=== PATIENT | male | born 1930 | race Caucasian/White ===

== ENCOUNTER 2020-09-13 12:33 | Emergency (ER) | payer MEDICARE, BC ==
[2020-09-13] MEDS ORDERED: Aspirin 81 MG Tab.Chew CHEW ONE (12:49)
[2020-09-13] MEDS ORDERED: Famotidine 20 MG/2 ML SDV IVPUSH ONE (12:49)
[2020-09-13] MEDS ORDERED: Metoprolol Tartrate 5 MG/5 ML SDV IVPUSH ONE (12:49)
[2020-09-13] MEDS ORDERED: Ticagrelor 90 MG Tab PO ONE (12:49)
--- NOTE | 2020-09-13 12:49 | EDM.PDOC ---
ED HPI GENERAL MEDICAL PROBLEM - General Chief Complaint: Chest Pain Stated Complaint: Chest Pain Time Seen by Provider: 09/13/20 12:40 Source of Information: Reports: Patient, Penitentiary Records, Old Records ([facility] EMR. No paper hospital chart available.) History Limitations: Reports: Altered Mental Status - History of Present Illness INITIAL COMMENTS - FREE TEXT/NARRATIVE: The patient was brought to the emergency room via transport vehicle from [facility] in [place] for further evaluation of initial 8/10 retrosternal chest pressure without radiation, however associated with some mild to moderate dyspnea and symptoms waking him up this morning. 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 His chest pain has improved to 5/10 at time of arrival to this facility with no apparent sublingual nitroglycerin tablets or other medications taken prior to arrival. He did take his morning coated baby aspirin and Plavix, however. The patient denies any heart flutter, dizziness, orthostasis, orthopnea, diaphoresis, paresthesias, recent decreased exercise tolerance, or any other anginal-type symptoms. No recent history of abdominal pain, heartburn, nausea, diarrhea, melena, gross hematochezia, or any food intolerance, including fatty foods, etc. with normal bowel movement earlier today. He denies any gross hematuria, colic, or the UTI symptoms. The patient also denies any recent fever, cough, wheezing, etc.. Onset: Today, Sudden Onset Date: 09/13/20 Onset Time: 06:00 Duration: Constant, Improving Location: Reports: Chest. Denies: Head, Face, Neck, Abdomen, Back, Upper Extremity, Left, Upper Extremity, Right, Radiates to Quality: Reports: Pressure, Same as Previous Episode Severity: Moderate Improves with: Reports: None Worsens with: Reports: None Context: Reports: Other (As above). Denies: Sick Contact, Trauma Associated Symptoms: Reports: Chest Pain, Shortness of Breath. 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) (As above), Other (see below) (As above) Middle Chest Pain Score (Numeric/FACES): 5 - Related Data Allergies Allergy/AdvReac Type Severity Reaction Status Date / Time No Known Allergies Allergy Verified 09/13/20 12:51 Home Meds: Home Meds Acetaminophen [Tylenol] 650 mg PO ,09/13/20 [History] Acetaminophen [Tylenol] 650 mg PO Q4HR PRN 09/13/20 [History] Aspirin [Children's Aspirin] 81 [place] 79909/13/20 [History] Clopidogrel Bisulfate [Plavix] [place] 79909/13/20 [History] Cyanocobalamin (Vitamin B-12) [Vitamin B-12] 1,000 [place] [address]09/13/20 [History] Furosemide [Lasix] 40 [place] 79909/13/20 [History] Ipratropium/Albuterol Sulfate [Iprat-Albut 0.5-3(2.5) mg/3 ml] 3 ml IH TID PRN 09/13/20 [History] Metoprolol Succinate [Toprol Xl] 25 [place] 79909/13/20 [History] NIFEdipine [Nifedipine ER] 60 mg [place] 79909/13/20 [History] Nitroglycerin 0.4 mg SL ASDIRECTED PRN 09/13/20 [History] Nitroglycerin 2.5 mg PO ,09/13/20 [History] Potassium Chloride [Klor-Con 10] 10 meq PO 09/13/20 [History] Sertraline [Zoloft] 50 [place] 79909/13/20 [History] atorvaSTATin [Lipitor] 40 mg PO BEDTIME 09/13/20 [History] lisinopriL [Lisinopril] 20 [place] [address]9909/13/20 [History] traZODone 50 mg PO BEDTIME 09/13/20 [History] Past Medical History HEENT History: Reports: Cataract, Hard of Hearing, Impaired Vision, Other (See Below). Denies: Allergic Rhinitis, Glaucoma, Macular Degeneration, Otitis Media, Retinal Detachment Other HEENT History: Patient wears glasses. 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 Left eye macular puckering. Cardiovascular History: Reports: Afib, Arrhythmia, CAD, Cardiomyopathy, Heart Failure, Heart Murmur, High Cholesterol, Hypertension, NV, Pacemaker, PTCA, Stents, Other (See Below). Denies: Aneurysm, Blood Clots/VTE/DVT, Bypass, PVD, Syncope Other Cardiovascular History: Patient with PTCA/stent in his 60s with apparent subsequent NV in about 2018?. Biologic valve replacement. Chronic atrial fibrillation/flutter with no current anticoagulation therapy. Additional previous history of sick sinus syndrome requiring a pacemaker. Respiratory History: Reports: Bronchitis, Recurrent, COPD, Intubation, Previous, Pneumonia, Recurrent. Denies: Asthma, Intubation, Difficult, PE, Pneumothorax, Sleep Apnea, TB Gastrointestinal History: Reports: GERD, Other (See Below). Denies: Celiac Disease, Cholelithiasis, Chronic Constipation, Chronic Diarrhea, Colon Polyp, Diverticulosis, Fecal Incontinence, GI Bleed, Hepatitis, Inflammatory Bowel Disease, Irritable Bowel Syndrome, Jaundice, Pancreatitis, PUD Other Gastrointestinal History: Umbilical hernia. Genitourinary History: Reports: BPH, Chronic Renal Insuffiency, Prostate Disorder, Other (See Below). Denies: Acute Renal Failure, Renal Calculus, STD, Urinary Incontinence, UTI, Recurrent Other Genitourinary History: Hypertensive grade 3 chronic renal insufficiency. Musculoskeletal History: Reports: Amputation, Arthritis, Back Pain, Chronic, Fracture, Gout, Neck Pain, Chronic, Osteoarthritis, Other (See Below). 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 Left hip fracture in about 1999. Neurological History: Reports: Neuropathy, Diabetic, Neuropathy, Peripheral. Denies: Alzheimers Disease, Cerebral Aneurysms, Concussion, CVA, Headaches, Chronic, Head Trauma, Migraines, MS, Parkinson's, Seizure, Speech Problems, TIA Psychiatric History: Reports: Anxiety, Depression, PTSD. Denies: Abuse, Victim of, ADD, ADHD, Addiction, Psych Hospitalization(s), Suicide Attempt, Suicidal Ideation Endocrine/Metabolic History: Reports: Diabetes, Type II, Hypokalemia, Obesity/BMI 30+, Other (See Below). Denies: Diabetes, Type I, Diabetes Mellitus, Type 3c, Hypothyroidism, IDDM Other Endocrine/Metabolic History: Borderline hyperglycemia. Hematologic History: Reports: Anemia, B12 Deficiency. Denies: Blood Transfusion(s), Iron Deficiency (Any blood transfusions) Immunologic History: Reports: None. Denies: AIDS, HIV, SLE Oncologic (Cancer) History: Reports: None. Denies: Basal Cell Carcinoma, Colon, Hodgkin's Lymphoma, Lymphoma, Malignant Melanoma, Non-Hodgkin's Lymphoma, Prostate, Squamous Cell Carcinoma Dermatologic History: Reports: Venous Stasis Dermatitis, Other (See Below). Denies: Eczema, Psoriasis Other Dermatologic History: Rhinophyma. - Infectious Disease History Infectious Disease History: Reports: Chicken Pox. Denies: C-Difficile, Measles, Meningitis, Mononucleosis, MRSA, Mumps, Novel Coronavirus, Pertussis (Whooping Cough), Rheumatic Fever, Rubella, Shingles, VRE - Past Surgical History Head Surgeries/Procedures: Reports: None HEENT Surgical History: Reports: Cataract Surgery, Oral Surgery, Other (See Below). Denies: Adenoidectomy, Eye Surgery, Myringotomy w Tube(s), Naso-Sinus Surgery, Tonsillectomy Other HEENT Surgeries/Procedures: Bilateral cataract surgery and his 60s. Complete teeth extraction with complete dentures uppers and lowers. Cardiovascular Surgical History: Reports: Coronary Artery Stent, Pacer, Percutaneous Transluminal Angioplasty. Denies: Coronary Artery Bypass, Varicose Other Cardiovascular Surgeries/Procedures: PTCA/stent in his 60s with last NV in about 2018. Pacemaker placement secondary to sick sinus syndrome. Respiratory Surgical History: Reports: None. Denies: Thoracentesis GI Surgical History: Reports: Appendectomy, Colonoscopy, Other (See Below). Denies: Cholecystectomy, EGD, Hernia, Abdominal, Hernia, Inguinal, Hernia Repair/Other, Polypectomy Other GI Surgeries/Procedures: Appendectomy in his 20s. Colonoscopy in his 70s? Male Surgical History: Reports: Circumcision, Vasectomy Endocrine Surgical History: Reports: None. Denies: Thyroid Biopsy Neurological Surgical History: Reports: None. Denies: C-Spine, Discectomy, Laminectomy, Lumbar Spine, Sacral Spine, Spinal Fusion, Thoracic Spine, Vertebroplasty Musculoskeletal Surgical History: Reports: Amputation, Joint Replacement, Knee Replacement, Other (See Below). Denies: Carpal Tunnel, Ganglion Cyst, Hip Replacement, ORIF Other Musculoskeletal Surgeries/Procedures:: Amputation repair of digit #4 of the left hand in the 1980s. Bilateral total knee arthroplasty in the with repeat bilateral procedures in about 2009. Oncologic Surgical History: Reports: None Dermatological Surgical History: Reports: None - Past Imaging History Past Imaging History: Reports: Other (See Below) (Pacemaker check on 09/05/2020) Social & Family History - Tobacco Use Tobacco Use Status *Q: Never Tobacco User Tobacco Use Within Last Twelve Months: No Used Tobacco, but Quit: No Smoking Cessation Information Provided To Patient: No Second Hand Smoke Exposure: No Second Hand Smoke Education Provided: No - Caffeine Use Caffeine Use: Reports: Coffee (5-10 cups/day). Denies: Energy Drinks, Soda, Tea - Alcohol Use Alcohol Use History: Yes Number of Drinks Per Day Comment: Apparent possible moderate previous alcohol intake without previous treatment, alcohol abuse, etc. by his history. Alcohol Use in Last Twelve Months: Yes Alcohol Use Frequency: Binges - Recreational Drug Use Recreational Drug Use: No Drug Use in Last 12 Months: No Recreational Drug Type: Denies: Amphetamines (Speed), Cocaine, Heroin, Inhalants (Glues, Solvents, Aerosols), LSD (Acid), Marijuana/Hashish, Methamphetamine, Morphine, Oxycodone - Living Situation & Occupation Living situation: Reports: (2014. 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 ED EXAM, GENERAL - Physical Exam Exam: See Below Exam Limited By: No Limitations General Appearance: Alert, WD/WN, No Apparent Distress Eye Exam: Bilateral Eye: EOMI, Normal Inspection (No vertigo or nystagmus. He does not have his glasses.) Ears: Normal External Exam, Normal Canal, Normal TMs, Hearing Loss (Moderate bilateral presbycusis with the patient not having his hearing aids today.) Nose: Normal Mucosa, No Blood, Other (Moderate rhinophyma) Throat/Mouth: Normal Lips, Normal Gums, Normal Oropharynx, Normal Voice, No Airway Compromise. No: Normal Teeth (Complete dentures uppers and lowers), Dysphagia, Perioral Cyanosis Head: Atraumatic, Normocephalic. No: Facial Swelling, Facial Tenderness, Sinus Tenderness Neck: Supple, Non-Tender, Full Range of Motion, Carotid Bruit (Mild bilateral carotid bruits). No: Lymphadenopathy (L), Lymphadenopathy (R), Thyromegaly Respiratory/Chest: No Respiratory Distress, No Accessory Muscle Use, Chest Non- Tender, Rales (Mild bilateral baseline). No: Rhonchi, Wheezing, Pleural Rub, Retractions Cardiovascular: Normal Peripheral Pulses, Regular Rate, Rhythm, No Edema, No Gallop, No JVD, No Murmur, No Rub. No: Gallop/S3, Gallop/S4, Friction Rub Peripheral Pulses: 2+: Radial (L), Radial (R), Dorsalis Pedis (L), Dorsalis Pedis (R) GI/Abdominal: Normal Bowel Sounds, Soft, Non-Tender, No Organomegaly, No Distention, No Abnormal Bruit, No Mass, Pelvis Stable, Hernia (2 cm nonincarcerated umbilical hernia), Other (Obese). No: Guarding (Male) Exam: Deferred Rectal (Males) Exam: Deferred Back Exam: Full Range of Motion, Other (Mild kyphosis). No: CVA Tenderness (L), CVA Tenderness (R), Muscle Spasm, Paraspinal Tenderness, Vertebral Tenderness Extremities: Normal Range of Motion, Non-Tender, No Pedal Edema, Normal Capillary Refill, Other (Mild to moderate venous stasis dermatitis of the anterior tibial regions bilaterally). No: Austin's Sign Neurological: Alert, Oriented, CN II-XII Intact, Normal Cognition (Although questionable borderline beginning confusion?/Organic brain syndrome), Normal Gait, Normal Reflexes (Negative Babinski's), No Motor/Sensory Deficits Psychiatric: Normal Affect, Normal Mood Skin Exam: Warm, Dry, Intact, Normal Color, Rash (Venous stasis dermatitis as above). No: Diaphoretic, Wound/Incision Lymphatic: No Adenopathy #1 Interpretation EKG Date: 09/13/20 Time: 12:33 Rhythm: A-Flutter (With likely 100% paced rhythm however pacer spikes difficult to assess secondary to atrial flutter) Rate (Beats/Min): 70 Comparison: NA - No Prior EKG EKG Interpretation Comments: Atrial flutter with paced rhythm Course - Vital Signs Last Recorded V/S: Last Vital Signs Temp 36.5 C 09/13/20 12:35 Pulse 70 09/13/20 14:55 Resp 17 09/13/20 12:50 BP 122/68 09/13/20 14:55 Pulse Ox 96 09/13/20 12:50 Vital Signs - 24 hr 09/13/20 09/13/20 09/13/20 12:35 12:50 13:05 Temperature [ 36.5 C Temporal] Pulse, 70 70 70 Peripheral [ Pulse Oximetry] Respiratory 16 17 Rate Blood Pressure Blood Pressure 134/73 121/67 123/68 [Right Upper Arm] O2 Sat by Pulse 97 96 Oximetry 09/13/20 09/13/20 09/13/20 13:34 13:40 14:08 Temperature [ Temporal] Pulse, 70 69 Peripheral [ Pulse Oximetry] Respiratory Rate Blood Pressure 121/66 Blood Pressure 83/51 L 99/66 [Right Upper Arm] O2 Sat by Pulse Oximetry 09/13/20 09/13/20 14:29 14:55 Temperature [ Temporal] Pulse, 70 70 Peripheral [ Pulse Oximetry] Respiratory Rate Blood Pressure Blood Pressure 114/66 122/68 [Right Upper Arm] O2 Sat by Pulse Oximetry - Orders/Labs/Meds Orders: Active Orders 24 hr Category Date Time Status Cardiac Monitoring [RC] . DIRECTED Care 09/13/20 12:49 Active EKG Documentation Completion [RC] ASDIRECTED Care 09/13/20 12:49 Active Oxygen Therapy, ED [RC] PRN Care 09/13/20 12:49 Active Peripheral IV Care [RC] . DIRECTED Care 09/13/20 12:49 Active Peripheral IV Care [RC] . DIRECTED Care 09/13/20 14:14 Active Pulse Oximetry [RC] CONTINUOUS Care 09/13/20 12:49 Active Up With Assistance [RC] PFP Care 09/13/20 12:49 Active Vital Signs [RC] PFP Care 09/13/20 12:49 Active Nothing per Oral Now Diet [DIET] Diet 09/13/20 Breakfast Active Chest 1V Frontal [CR] Stat Exams 09/13/20 12:49 Taken Nitroglycerin [Nitrostat] Med 09/13/20 13:26 Stat 0.4 mg SL ONETIME STA Sodium Chloride 0.9% [Saline Flush] Med 09/13/20 12:49 Active 10 ml FLUSH ASDIRECTED PRN Sodium Chloride 0.9% [Saline Flush] Med 09/13/20 14:13 Active 10 ml FLUSH ASDIRECTED PRN Obtain Past Medical Record [OM.PC] Urgent Oth 09/13/20 12:49 Active Peripheral IV Insertion Adult [OM.PC] Routine Oth 09/13/20 14:13 Ordered Peripheral IV Insertion Adult [OM.PC] Stat Oth 09/13/20 12:49 Ordered Resuscitation Status Stat Resus Stat 09/13/20 12:49 Ordered Medication Orders Nitroglycerin (Nitroglycerin 0.4 Mg Tab.Sl) 0.4 mg SL ONETIME STA Stop: 09/14/20 13:27 Last Admin: 09/13/20 13:34 Dose: 0.4 mg Documented by: GEREMIAS Sodium Chloride (Sodium Chloride 0.9% 10 Ml Syringe) 10 ml FLUSH ASDIRECTED PRN PRN Reason: Keep Vein Open Last Admin: 09/13/20 13:58 Dose: 10 ml Documented by: Admin: 09/13/20 13:02 Dose: 10 ml Documented by: GEREMIAS Sodium Chloride (Sodium Chloride 0.9% 10 Ml Syringe) 10 ml FLUSH ASDIRECTED PRN PRN Reason: Keep Vein Open Labs: Laboratory Tests 09/13/20 09/13/20 09/13/20 Range/Units 12:45 12:45 12:45 WBC 10.1 (4.0-10.2) K/uL RBC 5.71 H (4.33-5.41) M/uL Hgb 17.3 H (13.1-16.8) g/dL Hct 50.4 H (39.0-49.0) % MCV 88.3 D (84.0-98.0) fL MCH 30.3 (28.2-33.3) pg MCHC 34.3 (31.7-36.0) g/dL RDW 14.9 H (11.2-14.1) % Plt Count 241 D (150-350) K/uL Neut % (Auto) 71.4 (45.0-80.0) % Lymph % (Auto) 16.2 (10.0-50.0) % Humphreys % (Auto) 10.8 (2.0-14.0) % Eos % (Auto) 1.3 (0.0-5.0) % Baso % (Auto) 0.3 (0.0-2.0) % Neut # (Auto) 7.21 H (1.40-7.00) K/uL Lymph # (Auto) 1.64 (0.50-3.50) K/uL [place] # (Auto) 1.09 H (0.00-1.00) K/uL Eos # (Auto) 0.13 (0.00-0.50) K/uL Baso # (Auto) 0.03 (0.00-0.20) K/uL PT (9.5-12.0) SEC INR APTT (24.5-32.8) SEC D-Dimer, Quantitative 480 H (0-400) ng/mL Sodium 140 (136-145) mmol/L Potassium 4.1 (3.5-5.1) mmol/L Chloride 101 (98-107) mmol/L Carbon Dioxide 25.8 (21.0-32.0) mmol/L BUN 28 H (7-18) mg/dL Creatinine 1.23 H (0.51-1.17) mg/dL Est Cr Clr Drug Dosing 37.46 mL/min Estimated GFR (MDRD) 56 mL/min Glucose 122 H (70-99) mg/dL Lactic Acid (0.4-2.0) mmol/L Uric Acid 6.4 (2.6-7.2) mg/dL Calcium 9.2 (8.5-10.1) mg/dL Magnesium 2.0 (1.8-2.4) mg/dL Total Bilirubin 0.5 (0.2-1.0) mg/dL AST 11 L (15-37) U/L ALT 22 (12-78) U/L Alkaline Phosphatase 92 (46-116) IU/L Creatine Kinase 45 (26-308) U/L Creatine Kinase Index 3.6 H (0.0-2.5) % CK-MB (CK-2) 1.60 (0.00-3.60) ng/mL Troponin I 0.000 (0.000-0.056) ng/mL NT-Pro-B Natriuret Pep 7031 H (0-125) pg/mL Total Protein 7.6 (6.4-8.2) g/dL Albumin 4.3 (3.4-5.0) g/dL TSH, Ultra Sensitive 0.902 (0.358-3.740) mIU/mL SARS-CoV-2 RNA ([place]) (NEGATIVE) 09/13/20 09/13/20 09/13/20 Range/Units 12:45 13:10 13:10 WBC (4.0-10.2) K/uL RBC (4.33-5.41) M/uL Hgb (13.1-16.8) g/dL Hct (39.0-49.0) % MCV (84.0-98.0) fL MCH (28.2-33.3) pg MCHC (31.7-36.0) g/dL RDW (11.2-14.1) % Plt Count (150-350) K/uL Neut % (Auto) (45.0-80.0) % Lymph % (Auto) (10.0-50.0) % Humphreys % (Auto) (2.0-14.0) % Eos % (Auto) (0.0-5.0) % Baso % (Auto) (0.0-2.0) % Neut # (Auto) (1.40-7.00) K/uL Lymph # (Auto) (0.50-3.50) K/uL [place] # (Auto) (0.00-1.00) K/uL Eos # (Auto) (0.00-0.50) K/uL Baso # (Auto) (0.00-0.20) K/uL PT 10.3 (9.5-12.0) SEC INR 1.0 APTT 26.1 (24.5-32.8) SEC D-Dimer, Quantitative (0-400) ng/mL Sodium (136-145) mmol/L Potassium (3.5-5.1) mmol/L Chloride (98-107) mmol/L Carbon Dioxide (21.0-32.0) mmol/L BUN (7-18) mg/dL Creatinine (0.51-1.17) mg/dL Est Cr Clr Drug Dosing mL/min Estimated GFR (MDRD) mL/min Glucose (70-99) mg/dL Lactic Acid 1.4 (0.4-2.0) mmol/L Uric Acid (2.6-7.2) mg/dL Calcium (8.5-10.1) mg/dL Magnesium (1.8-2.4) mg/dL Total Bilirubin (0.2-1.0) mg/dL AST (15-37) U/L ALT (12-78) U/L Alkaline Phosphatase (46-116) IU/L Creatine Kinase (26-308) U/L Creatine Kinase Index (0.0-2.5) % CK-MB (CK-2) (0.00-3.60) ng/mL Troponin I (0.000-0.056) ng/mL NT-Pro-B Natriuret Pep (0-125) pg/mL Total Protein (6.4-8.2) g/dL Albumin (3.4-5.0) g/dL TSH, Ultra Sensitive (0.358-3.740) mIU/mL SARS-CoV-2 RNA ([place]) Negative (NEGATIVE) Meds: Medications Generic Name Dose Route Start Last Admin Trade Name Freq PRN Reason Stop Dose Admin Nitroglycerin 0.4 mg 09/13/20 13:26 09/13/20 13:34 Nitroglycerin 0.4 Mg Tab.Sl SL 09/14/20 13:27 0.4 mg ONETIME STA Administration Sodium Chloride 10 ml 09/13/20 12:49 09/13/20 13:58 Sodium Chloride 0.9% 10 Ml Syringe FLUSH 10 ml ASDIRECTED PRN Administration Keep Vein Open Sodium Chloride 10 ml 09/13/20 14:13 Sodium Chloride 0.9% 10 Ml Syringe FLUSH ASDIRECTED PRN Keep Vein Open Discontinued Medications Generic Name Dose Route Start Last Admin Trade Name Freq PRN Reason Stop Dose Admin Aspirin 324 mg 09/13/20 12:49 09/13/20 12:54 Aspirin 81 Mg Tab.Chew CHEW 09/13/20 12:50 324 mg ONETIME ONE Administration Famotidine 40 mg 09/13/20 12:49 09/13/20 13:00 Famotidine 20 Mg/2 Ml Sdv IVPUSH 09/13/20 12:50 40 mg ONETIME ONE Administration Furosemide 60 mg 09/13/20 13:41 09/13/20 14:33 Furosemide 40 Mg/4 Ml Vial IVPUSH 09/13/20 13:42 Not Given NOW ONE Morphine Sulfate 2 mg 09/13/20 13:38 09/13/20 14:40 Morphine 2 Mg/Ml Syringe IVPUSH 09/13/20 13:39 2 mg ONETIME ONE Administration Ondansetron HCl 4 mg 09/13/20 13:38 09/13/20 13:56 Ondansetron 4 Mg/2 Ml Sdv IVPUSH 09/13/20 13:39 4 mg ONETIME ONE Administration Potassium Chloride 20 meq 09/13/20 13:41 09/13/20 14:33 Potassium Chloride 20 Meq Tab.Er PO 09/13/20 13:42 Not Given ONETIME ONE Ticagrelor 180 mg 09/13/20 12:49 09/13/20 12:54 Ticagrelor 90 Mg Tab PO 09/13/20 12:50 180 mg ONETIME ONE Administration - Radiology Interpretation Free Text/Narrative:: athletic monitor shows a nearly 100% paced rhythm with heart flutter and heart rate in the 70s with no other significant extrasystoles, etc. Chest x-ray, portable, shows moderate COPD changes with no pulmonary infiltrates or pneumothorax. Mild to moderate cardiomegaly and CHF and/or pulmonary hypertension with left-sided pacemaker noted. Note status post medial sternotomy. Departure - Departure Time of Disposition: 15:30 Disposition: DC/Tfer to [facility] 02 Reason for Transfer *Q: Other (Cardiology consultation by accepting provider.) Condition: Fair Clinical Impression: Peptic reflux disease, Renal insufficiency, D-dimer, elevated, Mixed anxiety depressive disorder Chest pain Qualifiers: Chest pain type: precordial pain Qualified Code(s): R07.2 - Precordial pain CHF (congestive heart failure) Qualifiers: Heart failure type: unspecified Heart failure chronicity: acute on chronic Qualified Code(s): I50.9 - Heart failure, unspecified Hypertension Qualifiers: Hypertension type: essential hypertension Qualified Code(s): I10 - Essential (primary) hypertension Hyperlipidemia Qualifiers: Hyperlipidemia type: unspecified Qualified Code(s): E78.5 - Hyperlipidemia, unspecified COPD (chronic obstructive pulmonary disease) Qualifiers: COPD type: emphysema Emphysema type: panlobular Qualified Code(s): J43.1 - Panlobular emphysema Atrial flutter Qualifiers: Atrial flutter type: typical Qualified Code(s): I48.3 - Typical atrial flutter Coronary artery disease Qualifiers: Coronary Disease-Associated Artery/Lesion type: [place] artery [place] vs. transplanted heart: [place] heart Associated angina: with stable angina Qualified Code(s): I25.118 - Atherosclerotic heart disease of [place] coronary artery with other forms of angina pectoris Referrals: Carey Krause PA [Primary Care Provider] - Forms: ED Department Discharge, Interfacility Transfer [facility] Sepsis Event Note (ED) - Focused Exam Vital Signs: Vital Signs Temp Pulse Resp BP BP Pulse Ox 09/13/20 14:55 70 122/68 09/13/20 14:29 70 114/66 09/13/20 14:08 69 99/66 09/13/20 13:40 70 83/51 L 09/13/20 13:34 121/66 09/13/20 13:05 70 123/68 09/13/20 12:50 70 17 121/67 96 09/13/20 12:35 36.5 C 70 16 134/73 97 - Problem List & Annotations (1) Chest pain SNOMED Code(s): 27639561 Code(s): R07.9 - CHEST PAIN, UNSPECIFIED Status: Acute Priority: High Current Visit: Yes Onset Date: 09/13/20 Annotation/Comment:: Telephone consultation at 1:[address] Marx, emergency room physician at [facility], who does agree to accept the patient for direct admission, with no further treatment recommendations given. He does agree to notify the hospitalist concerning this admission. Per his instructions IV heparin therapy will not be initiated at this time. Relatively stable mild hypotension seco ndary to nitroglycerin tablet as below with otherwise stable vital signs and clinical exam prior to transfer. Ambulance transfer with payment analyst accompaniment. Chest pain protocol initiated immediately upon patient's arrival to the emergency room. Note some mild nonsymptomatic hypotension after receiving sublingual nitroglycerin in the emergency room with initial plans of IV morphine and IV Lasix therapy for his CHF and chest pain held secondary to his hypotension as above. Secondary to improved blood pressures and persistent Chest pain IV Morphine was given shortly prior to transfer, although the planned IV Lasix was still held. Accepting facility is aware of this. Second saline lock placed in his facility prior to patient transfer. Qualifiers: Chest pain type: precordial pain Qualified Code(s): R07.2 - Precordial pain (2) CHF (congestive heart failure) SNOMED Code(s): 33324401 Code(s): I50.9 - HEART FAILURE, UNSPECIFIED Status: Chronic Priority: High Current Visit: Yes Annotation/Comment:: IV Lasix ordered in the emergency room, however initially held secondary to patient's nonsymptomatic hypotension after receiving sublingual nitroglycerin tablet as above. Consider echocardiogram, etc. by accepting providers. Qualifiers: Heart failure type: unspecified Heart failure chronicity: acute on chronic Qualified Code(s): I50.9 - Heart failure, unspecified (3) Coronary artery disease SNOMED Code(s): 83135198 Code(s): I25.10 - ATHSCL HEART DISEASE OF [place] CORONARY ARTERY W/O ANG PCTRS Status: Chronic Priority: Medium Current Visit: Yes Annotation/Comment:: As above. Qualifiers: Coronary Disease-Associated Artery/Lesion type: [place] artery [place] vs. transplanted heart: [place] heart Associated angina: with stable angina Qualified Code(s): I25.118 - Atherosclerotic heart disease of [place] coronary artery with other forms of angina pectoris (4) D-dimer, elevated SNOMED Code(s): 387500199 Code(s): R79.89 - OTHER SPECIFIED ABNORMAL FINDINGS OF BLOOD CHEMISTRY Status: Acute Priority: High Current Visit: Yes Onset Date: 09/13/20 Annotation/Comment:: No clinical evidence of DVT or PE with only mildly elevated D-dimer elevation well below the 1000 level of concern. Note renal insufficiency. Further work-up by accepting providers depending on his clinical course with Dr. Marx, ER physician in [place] as above, comfortable with delaying CTA of the chest for now. Venous Doppler studies of the lower extremities may be advisable. (5) Atrial flutter SNOMED Code(s): 6846604 Code(s): I48.92 - UNSPECIFIED ATRIAL FLUTTER Status: Chronic Priority: Medium Current Visit: Yes Annotation/Comment:: Atrial flutter with no current anticoagulation therapy other than a baby aspirin and Plavix for cardiac stents. Note current pacemaker secondary to previous sick sinus syndrome. Cardiology consultation at the [facility] in [place] on 09/05/2020 with normal pacemaker check at that time. Qualifiers: Atrial flutter type: typical Qualified Code(s): I48.3 - Typical atrial flutter (6) COPD (chronic obstructive pulmonary disease) SNOMED Code(s): 03578019 Code(s): J44.9 - CHRONIC OBSTRUCTIVE PULMONARY DISEASE, UNSPECIFIED Status: Chronic Priority: Medium Current Visit: Yes Annotation/Comment:: COPD by chest x-ray with no current medical therapy. No recent fever or bronchitic type symptoms. COVID-19 rapid test negative in this facility. Note mild p olycythemia with no previous history of tobacco use. Qualifiers: COPD type: emphysema Emphysema type: panlobular Qualified Code(s): J43.1 - Panlobular emphysema (7) Hyperlipidemia SNOMED Code(s): 83196284 Code(s): E78.5 - HYPERLIPIDEMIA, UNSPECIFIED Status: Chronic Priority: Medium Current Visit: Yes Annotation/Comment:: Currently under therapy. Qualifiers: Hyperlipidemia type: unspecified Qualified Code(s): E78.5 - Hyperlipidemia, unspecified (8) Hypertension SNOMED Code(s): 45475887 Code(s): I10 - ESSENTIAL (PRIMARY) HYPERTENSION Status: Chronic Priority: Medium Current Visit: Yes Annotation/Comment:: Previously stable by history and on arrival to our emergency room. Note mild to moderate nonsymptomatic hypotension secondary to sublingual nitroglycerin tablet as above. Qualifiers: Hypertension type: essential hypertension Qualified Code(s): I10 - Essential (primary) hypertension (9) Peptic reflux disease SNOMED Code(s): 823450340 Code(s): K21.9 - GASTRO-ESOPHAGEAL REFLUX DISEASE WITHOUT ESOPHAGITIS Status: Chronic Priority: Medium Current Visit: Yes Annotation/Comment:: Recently nonsymptomatic. High-dose IV Pepcid given in the emergency room as GI prophylaxis. (10) Renal insufficiency SNOMED Code(s): 997599530, 340018097 Code(s): N28.9 - DISORDER OF KIDNEY AND URETER, UNSPECIFIED Status: Chronic Priority: Medium Current Visit: Yes Annotation/Comment:: Stable per our medical records. 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 Previous history of moderate alcohol use as above with current rhinophema. No intoxication at this time. - Problem List Review Problem List Initiated/Reviewed/Updated: Yes - My Orders Last 24 Hours: My Active Orders 09/13/20 Breakfast Nothing per Oral Now Diet [DIET] 09/13/20 12:49 Cardiac Monitoring [RC] . DIRECTED EKG Documentation Completion [RC] ASDIRECTED Oxygen Therapy, ED [RC] PRN Peripheral IV Care [RC] . DIRECTED Pulse Oximetry [RC] CONTINUOUS Up With Assistance [RC] PFP Vital Signs [RC] PFP Chest 1V Frontal [CR] Stat Sodium Chloride 0.9% [Saline Flush] 10 ml FLUSH ASDIRECTED PRN Obtain Past Medical Record [OM.PC] Urgent Peripheral IV Insertion Adult [OM.PC] Stat Resuscitation Status Stat 09/13/20 13:26 Nitroglycerin [Nitrostat] 0.4 mg SL ONETIME STA 09/13/20 14:13 Sodium Chloride 0.9% [Saline Flush] 10 ml FLUSH ASDIRECTED PRN Peripheral IV Insertion Adult [OM.PC] Routine 09/13/20 14:14 Peripheral IV Care [RC] . DIRECTED - Assessment/Plan Last 24 Hours: My Active Orders 09/13/20 Breakfast Nothing per Oral Now Diet [DIET] 09/13/20 12:49 Cardiac Monitoring [RC] . DIRECTED EKG Documentation Completion [RC] ASDIRECTED Oxygen Therapy, ED [RC] PRN Peripheral IV Care [RC] . DIRECTED Pulse Oximetry [RC] CONTINUOUS Up With Assistance [RC] PFP Vital Signs [RC] PFP Chest 1V Frontal [CR] Stat Sodium Chloride 0.9% [Saline Flush] 10 ml FLUSH ASDIRECTED PRN Obtain Past Medical Record [OM.PC] Urgent Peripheral IV Insertion Adult [OM.PC] Stat Resuscitation Status Stat 09/13/20 13:26 Nitroglycerin [Nitrostat] 0.4 mg SL ONETIME STA 09/13/20 14:13 Sodium Chloride 0.9% [Saline Flush] 10 ml FLUSH ASDIRECTED PRN Peripheral IV Insertion Adult [OM.PC] Routine 09/13/20 14:14 Peripheral IV Care [RC] . DIRECTED Assessment:: As above Plan: As above. Extensive precautions were given to the patient, who is in agreement with the treatment plan.
[2020-09-13] MEDS: Sodium Chloride 0.9% 10 ML Syringe FLUSH PRN ×2 (13:02→13:58)
[2020-09-13 13:10] LABS: PTT,PARTIAL THROMBOPLSTIN TIME 26.1 SEC (24.5-32.8)
[2020-09-13] MEDS ORDERED: Nitroglycerin 0.4 MG Tab.SL SL STA (13:26)
[2020-09-13] MEDS ORDERED: Ondansetron 4 MG/2 ML SDV IVPUSH ONE (13:38)
[2020-09-13] MEDS ORDERED: Morphine 2 MG/ML SYRINGE IVPUSH ONE (13:38)
[2020-09-13] MEDS ORDERED: Potassium Chloride 20 MEQ Tab.ER PO ONE (13:41)
[2020-09-13] MEDS ORDERED: Furosemide 40 MG/4 ML VIAL IVPUSH ONE (13:41)
[2020-09-13] MEDS ORDERED: Sodium Chloride 0.9% 10 ML Syringe FLUSH PRN (14:13)
== END 2020-09-13 15:30 ==
LOC: LL.ED 12:33
DX: I48.3 Typical atrial flutter (principal); J43.1 Panlobular emphysema; E78.5 Hyperlipidemia, unspecified; I13.0 Hypertensive heart and chronic kidney disease with heart failure and stage 1 through stage 4 chronic kidney disease, or unspecified chronic kidney disease; N18.9 Chronic kidney disease, unspecified; I50.9 Heart failure, unspecified; K21.9 Gastro-esophageal reflux disease without esophagitis; N28.9 Disorder of kidney and ureter, unspecified; R79.1 Abnormal coagulation profile; I25.10 Atherosclerotic heart disease of native coronary artery without angina pectoris; E11.22 Type 2 diabetes mellitus with diabetic chronic kidney disease; F41.8 Other specified anxiety disorders; E66.9 Obesity, unspecified; Z79.02 Long term (current) use of antithrombotics/antiplatelets; Z79.82 Long term (current) use of aspirin; Z79.899 Other long term (current) drug therapy; Z20.822 Contact with and (suspected) exposure to COVID-19
CPT/HCPCS: 36415; 71045; 80053; 82550; 82553; 83605; 83735; 83880; 84443; 84484; 84550; 85025; 85379; 85610; 85730; 93005; 93010; 96374; 96375; 99284; 99285-25; A9270-GY; J2270; J2405; J3490; U0002

== ENCOUNTER 2020-10-10 09:06 | Emergency (ER) | payer MEDICARE, BC ==
[2020-10-10] MEDS ORDERED: Sodium Chloride 0.9% 10 ML Syringe FLUSH PRN (09:20)
--- NOTE | 2020-10-10 09:20 | EDM.PDOC ---
ED HPI GENERAL MEDICAL PROBLEM - General Chief Complaint: Upper Extremity Injury/Pain Stated Complaint: left arm pain Time Seen by Provider: 10/10/20 09:10 Source of Information: Reports: Patient, Penitentiary Records, Old Records ([facility] EMR. 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 in [place] secondary to initial 7/10 left arm and shoulder ache discomfort without recent history radiation of this discomfort, or history of fall, injury, etc. 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 The patient denies any chest pain/pressure, heart flutter, dizziness, orthostasis, orthopnea, diaphoresis, paresthesias, recent decreased exercise tolerance, or any other anginal-type symptoms, although he was given 3 sublingual nitroglycerin tablets at the residential prior to transfer. The patient complains of some persistent 3/10 left shoulder and arm pain, however still denies any chest pressure, etc. His blood pressure was initially significantly elevated with onset of the symptoms at 4 AM, which did wake him up from sleep. Blood pressure was 177/92 immediately prior to transfer to this facility per residential staff. No recent history of abdominal pain, heartburn, nausea, diarrhea, melena, gross hematochezia, or any food intolerance, including fatty foods, etc. with normal bowel movement yesterday. He denies any gross hematuria, colic, or other UTI symptoms. The patient also denies any recent fever, cough, wheezing, dyspnea, etc.. No history of recent headaches, visual changes, diplopia, change in mental status, or other change in neurological status. Onset: Today, Sudden Onset Date: 10/10/20 Onset Time: 04:00 Duration: Constant, Improving Location: Reports: Upper Extremity, Left. Denies: Head, Face, Neck, Chest, Abdomen, Back, Pelvis, Upper Extremity, Right, Radiates to Quality: Reports: Ache, Same as Previous Episode Severity: Moderate Improves with: Reports: Medication Worsens with: Reports: Movement Context: Reports: Other (As above). Denies: Sick Contact, Trauma Associated Symptoms: Reports: Confusion (Stable by history). 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, Other (see below) (The patient did take his morning medications) - Related Data Allergies Allergy/AdvReac Type Severity Reaction Status Date / Time No Known Allergies Allergy Verified 10/10/20 09:14 Home Meds: Home Meds Acetaminophen [Tylenol] 650 mg PO ,09/13/20 [History] Acetaminophen [Tylenol] 650 mg PO Q4HR PRN MDD 3000mg 09/13/20 [History] Aspirin [Children's Aspirin] [place] 79909/13/20 [History] Cyanocobalamin (Vitamin B-12) [Vitamin B-12] 1,000 [place] [address]/13/20 [History] Ipratropium/Albuterol Sulfate [Iprat-Albut 0.5-3(2.5) mg/3 ml] 3 ml IH TID PRN 09/13/20 [History] Metoprolol Succinate [Toprol Xl] 25 [place] 79909/13/20 [History] NIFEdipine [Nifedipine ER] 60 [place] 79909/13/20 [History] Nitroglycerin 0.4 mg SL ASDIRECTED PRN 09/13/20 [History] Nitroglycerin 2.5 mg PO ,09/13/20 [History] Sertraline [Zoloft] 50 mg PO 0809/13/20 [History] atorvaSTATin [Lipitor] 40 mg PO BEDTIME 09/13/20 [History] lisinopriL [Lisinopril] 5 mg PO 0800 09/13/20 [History] traZODone 50 mg PO BEDTIME 09/13/20 [History] Acetaminophen [Pain Relief] 325 mg PO Q4HR PRN 10/10/20 [History] Apixaban [Eliquis] 5 mg PO BID 10/10/20 [History] Furosemide 20 mg PO BID #1 tablet 10/10/20 [Rx] Isosorbide Mononitrate [Imdur] 60 mg PO DAILY #1 tab.er 10/10/20 [Rx] Potassium Chloride 20 meq PO BID #1 tablet.er 10/10/20 [Rx] Tamsulosin [Flomax] 0.4 mg PO DAILY 10/10/20 [History] allopurinoL [Zyloprim] 100 mg PO DAILY 10/10/20 [History] Past Medical History HEENT History: Reports: Cataract, Hard of Hearing, Impaired Vision, Other (See Below). Denies: Allergic Rhinitis, Glaucoma, Macular Degeneration, Otitis Media, Retinal Detachment Other HEENT History: Patient wears glasses. 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 Left eye macular puckering. Cardiovascular History: Reports: Afib, Arrhythmia, CAD, Cardiomyopathy, Heart Failure, Heart Murmur, High Cholesterol, Hypertension, [place], Pacemaker, PTCA, Stents, Other (See Below). Denies: Aneurysm, Blood Clots/VTE/DVT, Bypass, PVD, Syncope Other Cardiovascular History: Moderate to severe diffuse coronary artery disease with current medical management. Patient with PTCA/stent in his 60s with apparent subsequent WY in about 2018?. Biologic valve replacement. Chronic atrial fibrillation/flutter with current Eliquis anticoagulation therapy. Additional previous history of sick sinus syndrome requiring a pacemaker. PVCs Respiratory History: Reports: Bronchitis, Recurrent, COPD, Intubation, Previous, Pneumonia, Recurrent. Denies: Asthma, Intubation, Difficult, PE, Pneumothorax, Sleep Apnea, TB Gastrointestinal History: Reports: GERD, Other (See Below). Denies: Celiac Disease, Cholelithiasis, Chronic Constipation, Chronic Diarrhea, Colon Polyp, Diverticulosis, Fecal Incontinence, GI Bleed, Hepatitis, Inflammatory Bowel Disease, Irritable Bowel Syndrome, Jaundice, Pancreatitis, PUD Other Gastrointestinal History: Umbilical hernia. Genitourinary History: Reports: BPH, Chronic Renal Insuffiency, Prostate Disorder, Other (See Below). Denies: Acute Renal Failure, Renal Calculus, STD, Urinary Incontinence, UTI, Recurrent Other Genitourinary History: Hypertensive grade 3 chronic renal insufficiency. Musculoskeletal History: Reports: Amputation, Arthritis, Back Pain, Chronic, Fracture, Gout, Neck Pain, Chronic, Osteoarthritis, Other (See Below). 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 Left hip fracture in about 1999. Neurological History: Reports: Neuropathy, Diabetic, Neuropathy, Peripheral. Denies: Alzheimers Disease, Cerebral Aneurysms, Concussion, CVA, Headaches, Chronic, Head Trauma, Migraines, MS, Parkinson's, Seizure, Speech Problems, TIA Psychiatric History: Reports: Anxiety, Dementia, Depression, PTSD, Other (See Below). 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 Endocrine/Metabolic History: Reports: Diabetes, Type II, Hypokalemia, Obesity/BMI 30+, Other (See Below). Denies: Diabetes, Type I, Diabetes Mellitus , Type 3c, Hypothyroidism, IDDM Other Endocrine/Metabolic History: Borderline hyperglycemia. Hematologic History: Reports: Anemia, B12 Deficiency, Polycythemia. Denies: Blood Transfusion(s), Iron Deficiency Immunologic History: Reports: None. Denies: AIDS, HIV, SLE Oncologic (Cancer) History: Reports: None. Denies: Basal Cell Carcinoma, Colon, Hodgkin's Lymphoma, Lymphoma, Malignant Melanoma, Non-Hodgkin's Lymphoma, Prostate, Squamous Cell Carcinoma Dermatologic History: Reports: Venous Stasis Dermatitis, Other (See Below). Denies: Eczema, Psoriasis Other Dermatologic History: Rhinophyma. - Infectious Disease History Infectious Disease History: Reports: Chicken Pox. Denies: C-Difficile, Measles, Meningitis, Mononucleosis, MRSA, Mumps, Novel Coronavirus, Pertussis (Whooping Cough), Rheumatic Fever, Rubella, Shingles, VRE - Past Surgical History Head Surgeries/Procedures: Reports: None HEENT Surgical History: Reports: Cataract Surgery, Oral Surgery, Other (See Below). Denies: Adenoidectomy, Eye Surgery, Myringotomy w Tube(s), Naso-Sinus Surgery, Tonsillectomy Other HEENT Surgeries/Procedures: Bilateral cataract surgery and his 60s. Complete teeth extraction with complete dentures uppers and lowers. Cardiovascular Surgical History: Reports: Coronary Artery Stent, Pacer, Pe rcutaneous Transluminal Angioplasty. Denies: Coronary Artery Bypass, Varicose Other Cardiovascular Surgeries/Procedures: PTCA/stent in his 60s with last WY in about 2018. Pacemaker placement secondary to sick sinus syndrome. Respiratory Surgical History: Reports: None. Denies: Thoracentesis GI Surgical History: Reports: Appendectomy, Colonoscopy, Other (See Below). Denies: Cholecystectomy, EGD, Hernia, Abdominal, Hernia, Inguinal, Hernia Repair/Other, Polypectomy Other GI Surgeries/Procedures: Appendectomy in his 20s. Colonoscopy in his 70s? Male Surgical History: Reports: Circumcision, Vasectomy Endocrine Surgical History: Reports: None. Denies: Thyroid Biopsy Neurological Surgical History: Reports: None. Denies: C-Spine, Discectomy, Laminectomy, Lumbar Spine, Sacral Spine, Spinal Fusion, Thoracic Spine, Vertebroplasty Musculoskeletal Surgical History: Reports: Amputation, Joint Replacement, Knee Replacement, Other (See Below). Denies: Carpal Tunnel, Ganglion Cyst, Hip Repl acement, ORIF Other Musculoskeletal Surgeries/Procedures:: Amputation repair of digit #4 of the left hand in the 1980s. Bilateral total knee arthroplasty in the with repeat bilateral procedures in about 2009. Oncologic Surgical History: Reports: None Dermatological Surgical History: Reports: None - Past Imaging History Past Imaging History: Reports: Angiography (Last on 09/15/2020.), Cardiac Echo (09/15/2020 with ejection fraction of 40-45% and findings as above.), Other (See Below) (Pacemaker check on 09/05/2020) Social & Family History - Family History Family Medical History: Unobtainable - Tobacco Use Tobacco Use Status *Q: Never Tobacco User Tobacco Use Within Last Twelve Months: No Used Tobacco, but Quit: No Smoking Cessation Information Provided To Patient: No Second Hand Smoke Exposure: No Second Hand Smoke Education Provided: No - Caffeine Use Caffeine Use: Reports: Coffee (5-10 cups/day). Denies: Energy Drinks, Soda, Tea - Alcohol Use Alcohol Use History: Yes Number of Drinks Per Day Comment: Apparent possible moderate previous alcohol intake without previous treatment, alcohol abuse, etc. by his history Alcohol Use in Last Twelve Months: Yes - Recreational Drug Use Recreational Drug Use: No Drug Use in Last 12 Months: No Recreational Drug Type: Denies: Amphetamines (Speed), Cocaine, Heroin, Inhalants (Glues, Solvents, Aerosols), LSD (Acid), Marijuana/Hashish, Methamphetamine, Morphine, Oxycodone - Living Situation & Occupation Living situation: Reports: (2014. 2 children), Extended Care Facility ([facility] in 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 ED EXAM, GENERAL - Physical Exam Exam: See Below Exam Limited By: No Limitations General Appearance: Alert, WD/WN, No Apparent Distress Eye Exam: Bilateral Eye: EOMI, Normal Inspection (No vertigo or nystagmus. He does not have his glasses), PERRL Ears: Normal External Exam, Normal Canal, Normal TMs, Hearing Loss (Moderate bilateral presbycusis), Other (He does not have his hearing aids) Nose: Normal Mucosa, No Blood, Other (Moderate rhinophyma) Throat/Mouth: Normal Lips, Normal Gums, Normal Oropharynx, Normal Voice, No Airway Compromise. No: Normal Inspection, Normal Teeth (Complete dentures uppers and lowers) Head: Atraumatic, Normocephalic. No: Facial Swelling, Facial Tenderness, Sinus Tenderness Neck: Supple, Non-Tender, Full Range of Motion, Carotid Bruit (Mild bilateral carotid bruits). No: Lymphadenopathy (L), Lymphadenopathy (R), Thyromegaly Respiratory/Chest: No Respiratory Distress, No Accessory Muscle Use, Chest Non- Tender, Rales (Mild bilateral basal rales). No: Rhonchi, Wheezing, Pleural Rub, Retractions Cardiovascular: Normal Peripheral Pulses, Regular Rate, Rhythm, No Edema, No Gallop, No JVD, No Murmur, No Rub. No: Gallop/S3, Gallop/S4, Friction Rub Peripheral Pulses: 2+: Radial (L), Radial (R), Dorsalis Pedis (L), Dorsalis Pedis (R) GI/Abdominal: Normal Bowel Sounds, Soft, Non-Tender, No Organomegaly, No Distention, No Abnormal Bruit, No Mass, Hernia (2 cm nonincarcerated umbilical hernia), Other (Obese) (Male) Exam: Deferred Rectal (Males) Exam: Deferred Back Exam: Full Range of Motion, Other (Mild kyphosis). No: CVA Tenderness (L), CVA Tenderness (R), Muscle Spasm, Paraspinal Tenderness, Vertebral Tenderness Extremities: Normal Range of Motion, Non-Tender, No Pedal Edema, Normal Capillary Refill, Other (Mild bilateral venous stasis dermatitis in the anterior tibial regions bilaterally). No: Austin's Sign Neurological: Alert, Oriented, Normal Reflexes (Negative Babinski's), No Motor/Sensory Deficits, Confused (Borderline organic brain syndromestable from previous evaluations) Psychiatric: Normal Affect, Normal Mood Skin Exam: Warm, Dry, Intact, Normal Color, Rash (Venous stasis dermatitis as above). No: Diaphoretic, Wound/Incision Lymphatic: No Adenopathy Course - Vital Signs Last Recorded V/S: Last Vital Signs Temp 36.2 C 10/10/20 09:08 Pulse 70 10/10/20 12:00 Resp 16 10/10/20 12:00 BP 134/82 10/10/20 12:00 Pulse Ox 97 10/10/20 12:00 Vital Signs - 24 hr 10/10/20 10/10/20 10/10/20 09:08 09:30 10:00 Temperature [ 36.2 C Temporal] Pulse, 86 70 70 Peripheral [ Left Pulse Oximetry] Respiratory 18 18 16 Rate Blood Pressure 157/88 H 124/84 123/73 [Left Upper] O2 Sat by Pulse 96 96 Oximetry 10/10/20 10/10/20 10/10/20 10:30 11:30 12:00 Temperature [ Temporal] Pulse, 70 70 Peripheral [ Left Pulse Oximetry] Respiratory 16 16 16 Rate Blood Pressure 119/79 124/75 134/82 [Left Upper] O2 Sat by Pulse 96 97 97 Oximetry - Orders/Labs/Meds Orders: Active Orders 24 hr Category Date Time Status Chest 1V Frontal [CR] Stat Exams 10/10/20 09:20 Taken Obtain Past Medical Record [OM.PC] Urgent Oth 10/10/20 09:20 Active Peripheral IV Insertion Adult [OM.PC] Stat Oth 10/10/20 09:20 Ordered Resuscitation Status Stat Resus Stat 10/10/20 09:20 Ordered Labs: Laboratory Tests 10/10/20 10/10/20 10/10/20 Range/Units 09:30 09:30 09:30 WBC 6.2 (4.0-10.2) K/uL RBC 4.62 (4.33-5.41) M/uL Hgb 14.1 D (13.1-16.8) g/dL Hct 42.6 (39.0-49.0) % MCV 92.2 D (84.0-98.0) fL MCH 30.5 (28.2-33.3) pg MCHC 33.1 (31.7-36.0) g/dL RDW 15.2 H (11.2-14.1) % Plt Count 208 (150-350) K/uL Neut % (Auto) 60.9 (45.0-80.0) % Lymph % (Auto) 26.8 (10.0-50.0) % [place] % (Auto) 9.2 (2.0-14.0) % Eos % (Auto) 2.1 (0.0-5.0) % Baso % (Auto) 1.0 (0.0-2.0) % Neut # (Auto) 3.79 (1.40-7.00) K/uL Lymph # (Auto) 1.67 (0.50-3.50) K/uL [place] # (Auto) 0.57 (0.00-1.00) K/uL Eos # (Auto) 0.13 (0.00-0.50) K/uL Baso # (Auto) 0.06 (0.00-0.20) K/uL PT 11.0 (9.5-12.0) SEC INR 1.1 APTT 29.6 (24.5-32.8) SEC D-Dimer, Quantitative 396 (0-400) ng/mL Sodium (136-145) mmol/L Potassium (3.5-5.1) mmol/L Chloride (98-107) mmol/L Carbon Dioxide (21.0-32.0) mmol/L BUN (7-18) mg/dL Creatinine (0.51-1.17) mg/dL Est Cr Clr Drug Dosing Estimated GFR (MDRD) mL/min Glucose (70-99) mg/dL Lactic Acid (0.4-2.0) mmol/L Uric Acid (2.6-7.2) mg/dL Calcium (8.5-10.1) mg/dL Magnesium (1.8-2.4) mg/dL Total Bilirubin (0.2-1.0) mg/dL AST (15-37) U/L ALT (12-78) U/L Alkaline Phosphatase (46-116) IU/L Creatine Kinase (26-308) U/L Creatine Kinase Index (0.0-2.5) % CK-MB (CK-2) (0.00-3.60) ng/mL Troponin I (0.000-0.056) ng/mL NT-Pro-B Natriuret Pep (0-125) pg/mL Total Protein (6.4-8.2) g/dL Albumin (3.4-5.0) g/dL TSH, Ultra Sensitive (0.358-3.740) mIU/mL 10/10/20 10/10/20 Range/Units 09:30 09:30 WBC (4.0-10.2) K/uL RBC (4.33-5.41) M/uL Hgb (13.1-16.8) g/dL Hct (39.0-49.0) % MCV (84.0-98.0) fL MCH (28.2-33.3) pg MCHC (31.7-36.0) g/dL RDW (11.2-14.1) % Plt Count (150-350) K/uL Neut % (Auto) (45.0-80.0) % Lymph % (Auto) (10.0-50.0) % [place] % (Auto) (2.0-14.0) % Eos % (Auto) (0.0-5.0) % Baso % (Auto) (0.0-2.0) % Neut # (Auto) (1.40-7.00) K/uL Lymph # (Auto) (0.50-3.50) K/uL [place] # (Auto) (0.00-1.00) K/uL Eos # (Auto) (0.00-0.50) K/uL Baso # (Auto) (0.00-0.20) K/uL PT (9.5-12.0) SEC INR APTT (24.5-32.8) SEC D-Dimer, Quantitative (0-400) ng/mL Sodium 139 (136-145) mmol/L Potassium 4.3 (3.5-5.1) mmol/L Chloride 105 (98-107) mmol/L Carbon Dioxide 25.9 (21.0-32.0) mmol/L BUN 25 H (7-18) mg/dL Creatinine 1.19 H (0.51-1.17) mg/dL Est Cr Clr Drug Dosing TNP Estimated GFR (MDRD) 58 mL/min Glucose 98 (70-99) mg/dL Lactic Acid 0.9 (0.4-2.0) mmol/L Uric Acid 4.8 (2.6-7.2) mg/dL Calcium 9.0 (8.5-10.1) mg/dL Magnesium 2.2 (1.8-2.4) mg/dL Total Bilirubin 0.4 (0.2-1.0) mg/dL AST 13 L (15-37) U/L ALT 21 (12-78) U/L Alkaline Phosphatase 84 (46-116) IU/L Creatine Kinase 51 (26-308) U/L Creatine Kinase Index 2.7 H (0.0-2.5) % CK-MB (CK-2) 1.40 (0.00-3.60) ng/mL Troponin I 0.012 (0.000-0.056) ng/mL NT-Pro-B Natriuret Pep 3104 H (0-125) pg/mL Total Protein 6.7 (6.4-8.2) g/dL Albumin 3.8 (3.4-5.0) g/dL TSH, Ultra Sensitive 1.073 (0.358-3.740) mIU/mL Meds: Medications Discontinued Medications Generic Name Dose Route Start Last Admin Trade Name Freq PRN Reason Stop Dose Admin Furosemide 60 mg 10/10/20 10:51 10/10/20 11:06 Furosemide 40 Mg/4 Ml Vial IVPUSH 10/10/20 10:52 60 mg NOW ONE Administration Potassium Chloride 20 meq 10/10/20 10:51 10/10/20 11:05 Potassium Chloride 20 Meq Tab.Er PO 10/10/20 10:52 20 meq ONETIME ONE Administration Sodium Chloride 10 ml 10/10/20 09:20 10/10/20 11:06 Sodium Chloride 0.9% 10 Ml Syringe FLUSH 10 ml ASDIRECTED PRN Administration Keep Vein Open - Radiology Interpretation Free Text/Narrative:: 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 Chest x-ray, portable, showed moderate to severe COPD and pulmonary fibrosis with evidence of moderate CHF and cardiomegaly. No pulmonary infiltrates, however difficult to assess secondary to his CHF. No pneumothorax. Note status post median sternotomy and pacemaker placement. Departure - Departure Time of Disposition: 12:33 Disposition: DC/Tfer to [facility] Condition: Fair Clinical Impression: Renal insufficiency, Mixed anxiety depressive disorder, Need for comfort care COPD (chronic obstructive pulmonary disease) Qualifiers: COPD type: emphysema Emphysema type: panlobular Qualified Code(s): J43.1 - Panlobular emphysema Coronary artery disease Qualifiers: Coronary Disease-Associated Artery/Lesion type: [place] artery [place] vs. transplanted heart: [place] heart Associated angina: with stable angina Qualified Code(s): I25.118 - Atherosclerotic heart disease of [place] coronary artery with other forms of angina pectoris CHF (congestive heart failure) Qualifiers: Heart failure type: unspecified Heart failure chronicity: acute on chronic Qualified Code(s): I50.9 - Heart failure, unspecified Hypertension Qualifiers: Hypertension type: essential hypertension Qualified Code(s): I10 - Essential (primary) hypertension - Discharge Information *PRESCRIPTION DRUG MONITORING PROGRAM REVIEWED*: Not Applicable *COPY OF PRESCRIPTION DRUG MONITORING REPORT IN PATIENT JEN: Not Applicable Prescriptions: Furosemide 20 mg PO BID #1 tablet Isosorbide Mononitrate [Imdur] 60 mg PO DAILY #1 tab.er Potassium Chloride 20 meq PO BID #1 tablet.er Referrals: Carey Krause PA [Primary Care Provider] - Forms: ED Department Discharge Additional Instructions: 1. CBC, basic metabolic panel, magnesium level, CK, CK-MB, troponin I, BNP, uric acid level, to be conducted on 10/13 2. Update regular provider on 10/13 after above blood test results have been obtained, including multiple medication changes as above/below 3. 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 4. Lasix 60 mg IV and potassium chloride 20 mEq orally given in the emergency room prior to return to your facility 5. Note increased Lasix and potassium chloride therapy orally, which should be started this afternoon at supper 6. Imdur 30 mg today at supper otherwise increased to 60 mg p.o. every afternoon starting 10/11 7. Vital signs on an every shift basis until medical providers updated on 10/13 8. Continue medical management of patient's heart disease for breakthrough anginal type symptoms, his hypertension, etc. as per recommendations from cardiology at [facility] during hospitalization in August 2020 9. Consider repeat chest x-ray within the next 7-10 days by his regular provider depending on his clinical course. Sepsis Event Note (ED) - Evaluation Sepsis Screening Result: No Definite Risk - Focused Exam Vital Signs: Vital Signs Pulse Resp BP Pulse Ox 10/10/20 12:00 70 16 134/82 97 10/10/20 11:30 16 124/75 97 10/10/20 10:30 70 16 119/79 96 10/10/20 10:00 70 16 123/73 96 10/10/20 09:30 70 18 124/84 96 - Problem List & Annotations (1) Coronary artery disease SNOMED Code(s): 72381315 Code(s): I25.10 - ATHSCL HEART DISEASE OF [place] CORONARY ARTERY W/O ANG PCTRS Status: Chronic Priority: Medium Annotation/Comment:: Atypical chest pain with chest pain protocol initiated upon patient's arrival to this facility. Patient was seen in our emergency room on 09/13/2020 and transferred to [facility] in [place] with extensive cardiac work-up at that time including echocardiogram, heart catheterization, etc. as above. None of his bypasses are patent at this time with overall stable previous PTCA/stents. Per recommendations from cardiology the patient is only a candidate for medical marie gement at this time. EKG was not conducted today secondary to his 100% paced rhythm. Note mildly elevated CK index with moderately elevated BNP with additional mild change in his troponin I likely secondary to his CHF. Some of his left shoulder pain was reproducible and is likely secondary to his arthritis with no history of fall or injury. Continue medical management as per recommendations from cardiology as above. Cardiology did previously recommend to decrease his Eliquis to a 2.5 mg twice daily regimen secondary to his current low-dose aspirin therapy and risk for additional GI bleed. This will be evaluated by his regular providers as per discharge instructions. Note comfort care. His Imdur therapy will also be increased with patient taking Imdur earlier this morning and an additional 30 mg to be taken this evening. Initiate Imdur at 60 mg p.o. every afternoon starting tomorrow for better control of his coronary artery disease and also better 24-hour control of his hypertension with most of his medications currently taken in the a.m. Qualifiers: Coronary Disease-Associated Artery/Lesion type: [place] artery [place] vs. transplanted heart: [place] heart Associated angina: with stable angina Qualified Code(s): I25.118 - Atherosclerotic heart disease of [place] coronary artery with other forms of angina pectoris (2) CHF (congestive heart failure) SNOMED Code(s): 29887325 Code(s): I50.9 - HEART FAILURE, UNSPECIFIED Status: Chronic Priority: High Annotation/Comment:: High-dose IV Lasix given in the emergency room with additional oral potassium chloride. Secondary to his CHF his Lasix and potassium therapy will be increased starting this afternoon. Note medical management of patient's heart disease as above. Close follow-up by regular provider Qualifiers: Heart failure type: unspecified Heart failure chronicity: acute on chronic Qualified Code(s): I50.9 - Heart failure, unspecified (3) Hypertension SNOMED Code(s): 25686053 Code(s): I10 - ESSENTIAL (PRIMARY) HYPERTENSION Status: Chronic Priority: Medium Annotation/Comment:: Somewhat elevated in the emergency room. Continue to observe closely by residential staff and regular providers. Note increased Lasix and Imdur therapy as above. 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 (5) Peptic reflux disease SNOMED Code(s): 496882252 Code(s): K21.9 - GASTRO-ESOPHAGEAL REFLUX DISEASE WITHOUT ESOPHAGITIS Status: Chronic Priority: Medium Annotation/Comment:: Recently nonsymptomatic. (6) COPD (chronic obstructive pulmonary disease) SNOMED Code(s): 05759832 Code(s): J44.9 - CHRONIC OBSTRUCTIVE PULMONARY DISEASE, UNSPECIFIED Status: Chronic Priority: Medium Annotation/Comment:: COPD by chest x-ray with no current medical therapy. No recent fever or bronchitic type symptoms. COVID-19 rapid test negative in this facility. Note mild polycythemia with no previous history of tobacco use. Qualifiers: COPD type: emphysema Emphysema type: panlobular Qualified Code(s): J43.1 - Panlobular emphysema (7) Renal insufficiency SNOMED Code(s): 339788794, 609731237 Code(s): N28.9 - DISORDER OF KIDNEY AND URETER, UNSPECIFIED Status: Chronic Priority: Medium Annotation/Comment:: Stable per our medical records. (8) Atrial flutter SNOMED Code(s): 0699224 Code(s): I48.92 - UNSPECIFIED ATRIAL FLUTTER Status: Chronic Priority: Medium Annotation/Comment:: Atrial flutter with current Eliquis and low-dose aspirin therapy, which may need to be adjusted as above. Qualifiers: Atrial flutter type: typical Qualified Code(s): I48.3 - Typical atrial flutter (9) Mixed anxiety depressive disorder SNOMED Code(s): 153473586 Code(s): F41.8 - OTHER SPECIFIED ANXIETY DISORDERS Status: Chronic Priority: Medium Annotation/Comment:: Stable by history. Previous history of moderate alcohol use as above with current rhinophema. No intoxication at this time. - Problem List Review Problem List Initiated/Reviewed/Updated: Yes - My Orders Last 24 Hours: My Active Orders 10/10/20 09:20 Chest 1V Frontal [CR] Stat Obtain Past Medical Record [OM.PC] Urgent Peripheral IV Insertion Adult [OM.PC] Stat Resuscitation Status Stat - Assessment/Plan Last 24 Hours: My Active Orders 10/10/20 09:20 Chest 1V Frontal [CR] Stat Obtain Past Medical Record [OM.PC] Urgent Peripheral IV Insertion Adult [OM.PC] Stat Resuscitation Status Stat Assessment:: As above Plan: As above. Extensive precautions were given to the patient and residential staff, who are in agreement with the treatment plan. See Patient Instructions for further treatment and plan.
[2020-10-10 09:54] LABS: PTT,PARTIAL THROMBOPLSTIN TIME 29.6 SEC (24.5-32.8)
[2020-10-10 10:06] LABS: CHLORIDE,CL 105 mmol/L (98-107); SODIUM,NA 139 mmol/L (136-145)
[2020-10-10] MEDS ORDERED: Potassium Chloride 20 MEQ Tab.ER PO ONE (10:51)
[2020-10-10] MEDS ORDERED: Furosemide 40 MG/4 ML VIAL IVPUSH ONE (10:51)
== END 2020-10-10 12:17 | disposition home or self-care (01) ==
LOC: LL.ED 09:06
DX: J43.1 Panlobular emphysema (principal); I25.118 Atherosclerotic heart disease of native coronary artery with other forms of angina pectoris; F41.8 Other specified anxiety disorders; I48.91 Unspecified atrial fibrillation; I25.10 Atherosclerotic heart disease of native coronary artery without angina pectoris; I13.0 Hypertensive heart and chronic kidney disease with heart failure and stage 1 through stage 4 chronic kidney disease, or unspecified chronic kidney disease; E11.22 Type 2 diabetes mellitus with diabetic chronic kidney disease; E11.40 Type 2 diabetes mellitus with diabetic neuropathy, unspecified; N18.9 Chronic kidney disease, unspecified; I50.9 Heart failure, unspecified; E78.00 Pure hypercholesterolemia, unspecified; I25.2 Old myocardial infarction; E66.9 Obesity, unspecified; Z79.01 Long term (current) use of anticoagulants; Z68.30 Body mass index [BMI] 30.0-30.9, adult; Z79.899 Other long term (current) drug therapy
CPT/HCPCS: 71045; 80053; 82550; 82553; 83605; 83735; 83880; 84443; 84484; 84550; 85025; 85379; 85610; 85730; 96374; 99283; A9270; J1940; 99284